=== PATIENT | female | born 1990 | race Caucasian/White ===

== ENCOUNTER 2022-08-30 01:07 | Emergency (ER) | payer SELFPAY ==
[~2022-08-30] VITALS: Ht 175.3 cm; Wt 63.5 kg
--- NOTE | 2022-08-30 01:22 | NUR ---
BIBMOTHER FROM HOME C/O H/A AND CONGESTION SINCE FRIDAY. UPON ARIVAL PT A/OX4. TOLERATING R/A WELL WITH NO RESP DISTRESS. CONNECTED PT TO POX AND MONITOR. SAFETY MEASURES IN PLACE.
--- NOTE | 2022-08-30 01:33 | NUR ---
20G STARTED ON L HAND. BLOOD COLLECTED AND SENT TO LAB
[2022-08-30] MEDS ORDERED: ONDANSETRON HCL/PF 4 MG/2 ML VIAL ONE (01:34)
[2022-08-30] MEDS: ONDANSETRON HCL/PF 4 MG/2 ML VIAL IV ONE (01:38)
[2022-08-30 02:02] LABS: BASOPHILS # (AUTO) 0.2 K/uL (0.0-0.2); BASOPHILS % (AUTO) 2.1 % (0.0-2.0); EOSINOPHILS % (AUTO) 8.6 % (0.0-6.0); HEMATOCRIT 37 % (33-45); HEMOGLOBIN 12.1 g/dL (11.5-14.8); LYMPHOCYTES # (AUTO) 1.1 K/uL (0.8-4.8); LYMPHOCYTES % (AUTO) 13.4 % (20.0-44.0); MEAN CORPUSCULAR HGB CONC 32 g/dl (31.0-36.0); MEAN CORPUSCULAR VOLUME 88 fL (82-100); MONOCYTES # (AUTO) 0.7 K/uL (0.1-1.30); MONOCYTES % (AUTO) 7.9 % (2.0-12.0); NEUTROPHILS # (AUTO) 5.8 K/uL (1.8-8.9); PLATELET COUNT (AUTO) 239 K/uL (150-450); RED BLOOD CELL COUNT(AUTO) 4.24 MIL/uL (4.0-5.2); WHITE BLOOD COUNT (AUTO) 8.5 K/uL (4.3-11.0)
--- NOTE | 2022-08-30 02:03 | NUR ---
[employer] AT PT'S BEDSIDE
--- NOTE | 2022-08-30 02:08 | NUR ---
PT UNABLE TO PROVIDE URINE SAMPLE AT THIS TIME.
[2022-08-30 02:17] LABS: ALANINE AMINOTRANSFERASE 310 U/L (12-78); ALBUMIN 3.6 g/dL (3.4-5.0); ALKALINE PHOSPHATASE 130 U/L (46-116); ASPARTATE AMINOTRANSFERASE 189 U/L (15-37); BILIRUBIN,DIRECT 0.1 mg/dL (0.0-0.2); BILIRUBIN,TOTAL 0.5 mg/dL (0.2-1.0); CALCIUM, SERUM 9.2 mg/dL (8.5-10.1); CARBON DIOXIDE 24 mmol/L (21-32); CHLORIDE 107 mmol/L (98-107); CREATININE 0.8 mg/dL (0.6-1.3); GLUCOSE 92 mg/dL (74-106); POTASSIUM 3.4 mmol/L (3.5-5.1); SODIUM SERUM 143 mmol/L (136-145); TOTAL PROTEIN, SERUM 6.8 g/dL (6.4-8.2); UREA NITROGEN, BLOOD 15 mg/dL (7-18)
[2022-08-30 02:19] LABS: ALCOHOL, BLOOD < 3 mg/dL (0-10)
--- NOTE | 2022-08-30 02:37 | NUR ---
URINE SPECIMEN COLLECTED AND SENT TO LAB.
[2022-08-30 02:53] LABS: BILIRUBIN,URINE NEGATIVE (NEGATIVE); COLOR,URINE YELLOW (YELLOW); LEUKOCYTE ESTERASE ,URINE NEGATIVE (NEGATIVE); NITRITE, URINE NEGATIVE (NEGATIVE); PROTEIN,URINE NEGATIVE (NEGATIVE); UGLUCOSE NEGATIVE (NEGATIVE); UROBILINOGEN,URINE 0.2 EU/dL (0.2)
--- NOTE | 2022-08-30 08:06 | NUR ---
SPOUSE (ALISSON HOWARD) [phone] [facility] ([phone]) SOLUTION LEAD FOR [facility]: [phone] [facility] STATED THAT THEY CANNOT TAKE THIS PT BACK IF THE PT IS DISCHARGED.
[2022-08-30] MEDS ORDERED: NALO4SPR BNOSTRILS (08:54)
--- NOTE | 2022-08-30 09:13 | NUR ---
Patient discharged to home in stable condition. Written and verbal after care instructions given. Patient verbalizes understanding of instruction. IV removed. Catheter intact and site benign. Pressure and 4x4 applied to site. No bleeding noted.
[2022-08-30 09:15] VITALS: BP 102/61; TEMP 98.9
== END 2022-08-30 09:15 | disposition home or self-care (01) ==
LOC: ER 01:10
DX: T40.411A Poisoning by fentanyl or fentanyl analogs, accidental (unintentional), initial encounter (principal); R06.02 Shortness of breath; Y92.89 Other specified places as the place of occurrence of the external cause
CPT/HCPCS: 99284; 96374; 93005; 85025; 80048; 80076; 81003; 36415; 80143; 80320; 80307; J2405; G0480